=== PATIENT | male | born 1970 | race Caucasian/White ===

== ENCOUNTER 2017-10-18 12:26 | Emergency (ER) | payer OTHER ==
[2017-10-18 12:42] VITALS: BP 149/94
[2017-10-18 13:43] LABS: Hematocrit 47 % (42-52); Hemoglobin 15.8 g/dl (14.0-18.0); Mean Corpuscular HGB Conc 34 g/dl (31-36); Mean Corpuscular Hemoglobin 31 pg (27-31); Mean Corpuscular Volume 92 fL (80-94); Mean Platelet Volume 9 um3 (7.4-10.4); Red Blood Count 5.06 10^6/ul (4.0-5.4); Red Cell Distribution Width 14 % (10.5-15); White Blood Count 9.2 10^3/ul (3.5-10.8)
[2017-10-18 13:54] LABS: Albumin 4.5 g/dL (3.2-5.2); BUN/Creatinine Ratio 17.6 (8-20); Calcium 9.8 mg/dL (8.6-10.3); EGFR African American 114.8 (>60); EGFR Non-African American 89.3 (>60); Globulin 2.7 g/dL (2-4); Potassium 4.1 mmol/L (3.5-5.0); Total Bilirubin 0.5 mg/dL (0.2-1.0); Total Protein 7.2 g/dL (6.4-8.9)
[2017-10-18] MEDS ORDERED: Ketorolac INJ* 60 MG/2 ML VIAL IM ONE (13:59)
[2017-10-18] MEDS ORDERED: Cyclobenzaprine TAB* 10 MG PO ONE (14:00)
--- NOTE | 2017-10-18 14:01 | ED ---
Back Pain - HPI Summary HPI Summary: 47M presents with back pain for a week. He states the pain is on the sides of his lower back. He denies any injury. He states he has been having to lift more at work and that is aggravating it. He has been taking Tylenol without relief. He denies any fever. He denies any iv drug use. He denies any loss of bowel or bladder or saddle anasethesia. He denies any pain down his legs. He is still able to ambulate normally. He is in the process of switching primaries. Also complains of SOB with exertion at work. He is a smoker. He denies any chest pain. He denies any history of CAD. He denies any history of HTN or DM. He also states has noticed a mass on his chest that is growing. He denies any family history of CA. This mass is not causing him pain. He states has not had any SOB today. - History of Current Complaint Chief Complaint: EDBackInjuryPain Stated Complaint: LOWER BACK PAIN Time Seen by Provider: 10/18/17 12:49 Pain Intensity: 8 - Allergies/Home Medications Allergies/Adverse Reactions: Allergies Allergy/AdvReac Type Severity Reaction Status Date / Time No Known Allergies Allergy Verified 01/14/15 07:59 PMH/Surg Hx/FS Hx/Imm Hx Endocrine/Hematology History: Denies: Hx Anticoagulant Therapy, Hx Blood Disorders, Hx Diabetes, Hx Systemic Lupus Erythematosus Cardiovascular History: Denies: Hx Congestive Heart Failure, Hx Hypertension, Hx Pacemaker/ICD Respiratory History: Denies: Hx Asthma History: Denies: Hx Dialysis, Hx Renal Disease Musculoskeletal History: Reports: Hx Arthritis - LOWER BACK, Hx Rheumatoid Arthritis - LOWER BACK/MEDICATED: CELEBREX, Other Musculoskeletal History - Rt ankle surgery due to injury years ago Denies: Hx Scoliosis Sensory History: Denies: Hx Contacts or Glasses, Hx Hearing Aid Opthamlomology History: Denies: Hx Contacts or Glasses Neurological History: Reports: Other Neuro Impairments/Disorders - CSP FUSION Denies: Hx Headaches Psychiatric History: Reports: Hx Depression, Hx Substance Abuse Denies: Hx Anxiety, Hx Attention Deficit Hyperactivity Disorder, Hx Eating Disorder, Hx Panic Disorder, Hx Post Traumatic Stress Disorder, Hx Inpatient Treatment, Hx Community Mental Health Tx, Hx Schizophrenia, Hx Bipolar Disorder , Hx Suicide Attempt, Hx of Violent Episodes Against Others, Other Psychiatric Issues/Disorders - Cancer History Hx Chemotherapy: No - Surgical History Surgery Procedure, Year, and Place: RT KNEE ARTHROSCOPY 1997 [facility] Hx Anesthesia Reactions: No Infectious Disease History: No Infectious Disease History: Denies: Hx Clostridium Difficile, Hx Hepatitis, Hx Human Immunodeficiency Virus (HIV), Hx Shingles, Hx Tuberculosis, Traveled Outside the [place] in Last 30 Days - Family History Known Family History: Positive: None, Hypertension - Social History Alcohol Use: None Substance Use Type: Reports: None Substance Use Comment - Amount & Last Used: PT IN RECOVERY Smoking Status (MU): Light Every Day Tobacco Smoker Type: Cigarettes Amount Used/How Often: 1PPD Length of Time of Smoking/Using Tobacco: 25 YRS Have You Smoked in the Last Year: Yes Review of Systems Negative: Fever Negative: Chest Pain Positive: Shortness Of Breath Positive: Myalgia - back pain All Other Systems Reviewed And Are Negative: Yes Physical Exam Triage Information Reviewed: Yes Vital Signs On Initial Exam: Initial Vitals Temp Pulse Resp BP Pulse Ox 97.5 F 83 20 149/94 97 10/18/17 12:39 10/18/17 12:39 10/18/17 12:39 10/18/17 12:39 10/18/17 12:39 Vital Signs Reviewed: Yes Appearance: Positive: Well-Appearing Skin: Positive: Warm, Dry, Other - mass over left 5-7 rib area Head/Face: Positive: Normal Head/Face Inspection Eyes: Positive: Normal, EOMI, YOLY, Conjunctiva Clear ENT: Positive: Normal ENT inspection, Pharynx normal, TMs normal Respiratory/Lung Sounds: Positive: Clear to Auscultation, Breath Sounds Present Cardiovascular: Positive: Normal, RRR Abdomen Description: Positive: Nontender, Soft Bowel Sounds: Positive: Present Musculoskeletal: Positive: Strength/ROM Intact - back, Other - good pulses, tender over lower back, no midline tenderness, neg SLR Neurological: Positive: Reflexes Intact - patella Psychiatric: Positive: Normal - [place] Coma Scale Coma Scale Total: 15 Diagnostics - Vital Signs Vital Signs Temp Pulse Resp BP Pulse Ox 10/18/17 12:39 97.5 F 83 20 149/94 97 - Laboratory Lab Results: Lab Results 10/18/17 10/18/17 10/18/17 Range/Units 13:25 13:25 13:25 WBC 9.2 (3.5-10.8) 10^3/ul RBC 5.06 (4.0-5.4) 10^6/ul Hgb 15.8 (14.0-18.0) g/dl Hct 47 (42-52) % MCV 92 (80-94) fL MCH 31 (27-31) pg MCHC 34 (31-36) g/dl RDW 14 (10.5-15) % Plt Count 270 (150-450) 10^3/ul MPV 9 (7.4-10.4) um3 Neut % (Auto) 60.0 (38-83) % Lymph % (Auto) 28.8 (25-47) % [place] % (Auto) 8.3 (1-9) % Eos % (Auto) 1.7 (0-6) % Baso % (Auto) 1.2 (0-2) % Absolute Neuts (auto) 5.5 (1.5-7.7) 10^3/ul Absolute Lymphs (auto) 2.7 (1.0-4.8) 10^3/ul Absolute Monos (auto) 0.8 (0-0.8) 10^3/ul Absolute Eos (auto) 0.2 (0-0.6) 10^3/ul Absolute Basos (auto) 0.1 (0-0.2) 10^3/ul Absolute Nucleated RBC 0 10^3/ul Nucleated RBC % 0 D-Dimer, Quantitative < 200 (Less Than 230) ng/mL Sodium 139 (133-145) mmol/L Potassium 4.1 (3.5-5.0) mmol/L Chloride 108 (101-111) mmol/L Carbon Dioxide 24 (22-32) mmol/L Anion Gap 7 (2-11) mmol/L BUN 16 (6-24) mg/dL Creatinine 0.91 (0.67-1.17) mg/dL Est GFR ( Amer) 114.8 (>60) Est GFR (Non-Af Amer) 89.3 (>60) BUN/Creatinine Ratio 17.6 (8-20) Glucose 78 (70-100) mg/dL Calcium 9.8 (8.6-10.3) mg/dL Total Bilirubin 0.50 (0.2-1.0) mg/dL AST 22 (13-39) U/L ALT 19 (7-52) U/L Alkaline Phosphatase 62 (34-104) U/L Troponin I 0.00 (<0.04) ng/mL Total Protein 7.2 (6.4-8.9) g/dL Albumin 4.5 (3.2-5.2) g/dL Globulin 2.7 (2-4) g/dL Albumin/Globulin Ratio 1.7 (1-3) Result Diagrams: 10/18/17 13:25 10/18/17 13:25 Lab Statement: Any lab studies that have been ordered have been reviewed, and results considered in the medical decision making process. - Radiology chest Xray Interpretation: No Acute Changes Radiology Interpretation Completed By: Radiologist - EKG No standard instances EKG Rhythm: Sinus Rhythm ST Segment: Normal EKG Interpretation: normal ekg Back Pain Course/Dx - Course Course Of Treatment: 47M presents with back pain for a week. He states the pain is on the sides of his lower back. He denies any injury. He states he has been having to lift more at work and that is aggravating it. He has been taking Tylenol without relief. He denies any fever. He denies any iv drug use. He denies any loss of bowel or bladder or saddle anasethesia. He denies any pain down his legs. He is still able to ambulate normally. He is in the process of switching primaries. Also complains of SOB with exertion at work. He is a smoker. He denies any chest pain. He denies any history of CAD. He has history of HTN. He aslo states has noticed a mass on his chest that is growing. He denies any family history of CA. This mass is not causing him pain. on exam lungs CTA. no midline tenderness back. tenderness on side of lower back. neg SLR. has lump over left ribs 5-7 that is nontender likely breast mass. ekg normal. chest xray normal. labs normal. will treat back pain with ibuprofen and flexeril. told to follow up with primary about mass as may need bx. patient understand and agrees with plan. - Diagnoses Differential Diagnosis/HQI/PQRI: Positive: Herniated Disc, Strain, Sprain, Other - PE, DE Provider Diagnoses: Back pain, Shortness of breath, Mass of chest wall, left Discharge - Discharge Plan Condition: Good Disposition: HOME Prescriptions: Cyclobenzaprine TAB* [Flexeril 10 MG TAB*] 10 mg PO TID PRN #15 tab PRN Reason: Pain Ibuprofen TAB* [Motrin TAB* 600 MG] 600 mg PO Q6H PRN #20 tab PRN Reason: Pain Patient Education Materials: Back Pain (ED) Referrals: Davy Villarreal MD [Primary Care Provider] - Additional Instructions: Follow up with primary about chest mass and shortness of breath Take ibuprofen every 6 hours for pain Take flexeril three times a day for back pain ice/heat area Return to ED if develop any new or worsening symptoms
--- NOTE | 2017-10-18 14:42 | RAD ---
INDICATION: Short of breath COMPARISON: January 08, 2015 TECHNIQUE: PA and lateral dual-energy views were obtained. FINDINGS: Bones/Soft Tissues: There are no acute bony findings. Cardiomediastinal: The cardiomediastinal silhouette is normal. Lungs: There are no infiltrates. Pleura: There are no pleural effusions. Other: None IMPRESSION: NO ACTIVE DISEASE.
== END 2017-10-18 15:07 | disposition home or self-care (01) ==
LOC: ED 12:26
DX: M54.5 Low back pain (principal); R06.02 Shortness of breath; R22.2 Localized swelling, mass and lump, trunk; F17.210 Nicotine dependence, cigarettes, uncomplicated
CPT/HCPCS: 36415; 71020; 80053; 84484; 85025; 85379; 93005; 99282; A9270-GY; J1885